=== PATIENT | female | born 1970 | race Caucasian/White ===

== ENCOUNTER 2024-10-06 07:56 | Day surgery (SDC) | payer BC ==
[~2024-10-06] VITALS: Ht 157.5 cm; Wt 99.0 kg
[~2024-10-06 07:56] MED LIST: IBLOOD GLUCOSE TEST STRIP 1 EA TEST VI PRN; LACTATED RINGER'S 1,000 ML IV SCH; LEVOTHYROXINE50 MCG PO; LIDOCAINE HCL 1% 5 ML SDV INJ ONE; METHOCARBAMOL500 MG PO; MIDAZOLAM HCL 5 MG/5 ML VIAL IV PRN; SERTRALINE HCL50 MG PO; VITAMIN D5000 UNIT PO; fentaNYL citrate 100 MCG/2 ML VIAL IV PRN
[2024-10-06 08:14] VITALS: BP 151/85
[2024-10-06] MEDS ORDERED: fentaNYL citrate 100 MCG/2 ML VIAL ONE (09:54)
[2024-10-06] MEDS ORDERED: MIDAZOLAM HCL 5 MG/5 ML VIAL ONE (09:54)
--- NOTE | 2024-10-06 10:56 | NUR ---
10/06/24 Aleena6 Lashell Smith 1044- PT ARRIVES TO PACU WITH A NATURAL AIRWAY ON 2L OF O2 VIA NASAL CANNULA. BREATHING IS EVEN AND UNLABORED. ALL MONITORS PUT IN PLACE. VSS. PT WAKES TO VERBAL AND LIGHT TACTILE STIMULI. PT DENIES PAIN AND NAUSEA. PT ENCOURAGED TO PASS GAS. LR INFUSING IN R HAND. PT IS LAYING ON LEFT SIDE AND EASILY FALLS BACK TO SLEEP. 1054- MD AT BEDSIDE TO DISCUSS PLAN OF CARE. PT EASILY WAKES TO VERBAL STIMULI. PT DENIES QUESTIONS OR CONCERNS AT THIS TIME. PT ALSO DENIES PAIN AND NAUSEA.
[2024-10-06 11:25] VITALS: BP 104/68
--- NOTE | 2024-10-06 13:30 | OR ---
[facility] [address], [place] [address] Signed DATE OF OPERATION: 10/06/2024 SURGEON: Spike Martinez MD PREOPERATIVE DIAGNOSIS: History of tubular adenoma at 20 cm in 2019, known diverticulosis. POSTOPERATIVE DIAGNOSIS: Diverticula, no evidence of new polyp for recurrent polyp. PROCEDURE: Total colonoscopy to cecum. ANESTHESIA: Intravenous sedation fentanyl 150 mcg and Versed 7 mg. INDICATION: This 53-year-old white woman is a patient of REINA Echeverria. She underwent colonoscopy by [facility] in 2019 at which time she was found to have diverticula and a sessile polyp at 20 cm which proved to be a tubular adenoma. She has no current symptoms of bleeding, diarrhea or constipation and no family history of colon cancer. She is admitted at this time to undergo colonoscopy. She understands the risk of bleeding, infection, and perforation. FINDINGS: The prep was good. Complete colonoscopy was undertaken to the cecum with full intubation of the cecum. Ileocecal valve and appendiceal orifice were normal. She had diverticula of the sigmoid colon, but no evidence of new or recurrent polyp. DESCRIPTION OF PROCEDURE: The patient was brought to the endoscopy suite and placed in lateral decubitus , given intravenous sedation to the point of slurred speech and nystagmus. Digital rectal examination was normal. Full cardiopulmonary monitoring was maintained. An Olympus video colonoscope was passed in the rectum and manipulated throughout the colon noting diverticula of the sigmoid. The scope was ultimately passed to the right colon. Abdominal wall stabilization allowed for full intubation of the cecum. Ileocecal valve and appendiceal orifice were normal. The scope was withdrawn from that point. Examination undertaken showed no sign of polyps or colitis, only a few scattered diverticula of the sigmoid colon. Retroflexed view of the rectum was normal. The scope Electronically Signed By: SPIKE MARTINEZ MD 10/06/24 1330 PATIENT NAME: GARRETT HUMPHREY OPERATIVE REPORT DATE OF : 66 REPORT #: [id number] PHYSICIAN: SPIKE MARTINEZ MD PCP: JULIENNE ANDERSON REPORT IS CONFIDENTIAL AND NOT TO BE RELEASED WITHOUT AUTHORIZATION [facility] [address] [place] [id number] Signed was removed. The patient was taken to the recovery room in good condition. CONCLUDING DIAGNOSIS: Diverticulosis. No evidence of polyps. PLAN: Recommend repeat colonoscopy in 10 years, sooner if symptoms should develop. Recommend high-fiber diet as well. MD JENIFFER Arora/RICARDO /[id number] cc: REINA Echeverria Copies: JULIENNE ANDERSON ~ Electronically Signed By: SPIKE MARTINEZ MD 10/06/24 1330 PATIENT NAME: GARRETT HUMPHREY OPERATIVE REPORT DATE OF : 66 REPORT #: [id number] PHYSICIAN: SPIKE MARTINEZ MD PCP: JULIENNE ANDERSON REPORT IS CONFIDENTIAL AND NOT TO BE RELEASED WITHOUT AUTHORIZATION
== END 2024-10-06 11:35 | disposition home or self-care (01) ==
LOC: OPS 07:56 → DS 07:56 → OPS 09:00
PROVIDERS: ATTEND Surgery
PROC: 0DJD8ZZ Inspection of Lower Intestinal Tract, Via Natural or Artificial Opening Endoscopic (ICD-10-PCS; principal; 2024-10-06 09:00)
DX: K57.30 Diverticulosis of large intestine without perforation or abscess without bleeding (principal); E07.9 Disorder of thyroid, unspecified; G47.30 Sleep apnea, unspecified; E66.01 Morbid (severe) obesity due to excess calories; Z68.39 Body mass index [BMI] 39.0-39.9, adult; Z86.0101 Personal history of adenomatous and serrated colon polyps; Z90.49 Acquired absence of other specified parts of digestive tract
CPT/HCPCS: 84703; 99153; G0500; J2250; J3010; J7121